=== PATIENT | male | born 1985 | race American Indian/Alaskan Native ===

== ENCOUNTER 2018-11-28 10:38 | Emergency (ER) | payer OTHER ==
[2018-11-28 10:58] VITALS: BP 152/102
--- NOTE | 2018-11-28 12:04 | XRay Report ---
Left hand 3 views: History: Pain and swelling. Findings: Fracture noted of the base of the fifth metacarpal left hand. No displacement of the fracture fragments. Impression: Fracture base fifth metacarpal left hand.
[2018-11-28] MEDS ORDERED: IBUPROFEN PO ONE (12:57)
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
== END 2018-11-28 13:24 | disposition home or self-care (01) ==
LOC: ED 10:38
DX: S62.347A Nondisplaced fracture of base of fifth metacarpal bone, left hand, initial encounter for closed fracture (principal); F17.200 Nicotine dependence, unspecified, uncomplicated; W23.0XXA Caught, crushed, jammed, or pinched between moving objects, initial encounter; Y93.89 Activity, other specified; Y92.89 Other specified places as the place of occurrence of the external cause; Y99.8 Other external cause status